=== PATIENT | male | born 2000 | race Asian ===

== ENCOUNTER 2018-11-27 21:58 | Emergency (ER) | payer SELFPAY ==
[2018-11-27 23:05] LABS: ABS Basophils 0.1 10^3/ul (0-0.2); ABS Eosinophils 0.1 10^3/ul (0-0.6); ABS Lymphocytes 1.7 10^3/ul (1.0-4.8); ABS Monocytes 0.4 10^3/ul (0-0.8); ABS Neutrophils 3.1 10^3/ul (1.5-7.7); ABS Nucleated RBC 0 10^3/ul; Eosinophil % 2.3 %; Hematocrit 50 % (42-52); Hemoglobin 16.9 g/dl (14.0-18.0); Lymphocyte % 31.1 %; Mean Corpuscular HGB Conc 34 g/dl (31-36); Mean Corpuscular Hemoglobin 31 pg (27-31); Mean Corpuscular Volume 92 fL (80-94); Mean Platelet Volume 7.2 fL (7.4-10.4); Nucleated Red Blood Cells % 0; Platelet Count 253 10^3/ul (150-450); Red Blood Count 5.47 10^6/ul (4.00-5.40); Red Cell Distribution Width 13 % (10.5-15); White Blood Count 5.3 10^3/ul (3.5-10.8)
--- NOTE | 2018-11-27 23:24 | ED ---
Syncope/Near Syncope - HPI Summary HPI Summary: 17-year-old male presents with syncopal episode today. He states that had a couple drinks and was standing when he passed out. He states he had no symptoms prior to passing out. Friends state he was out for a couple seconds. Denies any history of syncope. No nausea vomiting. No bowel pain. No chest pain shortness breath. Denies any complaints currently and no injury that he knows of. Denies any dizziness currently. States he was dizzy. - History Of Current Complaint Chief Complaint: EDSyncope Time Seen by Provider: 11/27/18 23:16 - Allergies/Home Medications Allergies/Adverse Reactions: Allergies Allergy/AdvReac Type Severity Reaction Status Date / Time No Known Allergies Allergy Verified 11/27/18 22:05 Home Medications: Home Medications NK [No Home Medications Reported] 11/27/18 [History Confirmed 11/27/18] PMH/Surg Hx/FS Hx/Imm Hx Endocrine/Hematology History: Denies: Hx Anticoagulant Therapy Cardiovascular History: Denies: Hx Hypertension Infectious Disease History: No Infectious Disease History: Reports: Traveled Outside the [place] in Last 30 Days - Family History Known Family History: Negative: Cardiac Disease - Social History Alcohol Use: Occasionally Substance Use Type: Reports: None Smoking Status (MU): Never Smoked Tobacco Review of Systems Negative: Fever Negative: Chest Pain Negative: Shortness Of Breath Positive: Syncope All Other Systems Reviewed And Are Negative: Yes Physical Exam Triage Information Reviewed: Yes Vital Signs On Initial Exam: Initial Vitals Temp Pulse Resp BP Pulse Ox 97.2 F 110 16 144/66 100 11/27/18 22:00 11/27/18 22:00 11/27/18 22:00 11/27/18 22:00 11/27/18 22:00 Vital Signs Reviewed: Yes Appearance: Positive: Well-Appearing Skin: Positive: Warm, Dry Head/Face: Positive: Normal Head/Face Inspection Eyes: Positive: Normal, EOMI, AUNDREA, Conjunctiva Clear ENT: Positive: Normal ENT inspection, Pharynx normal, TMs normal Respiratory/Lung Sounds: Positive: Clear to Auscultation, Breath Sounds Present Cardiovascular: Positive: Normal, RRR Abdomen Description: Positive: Nontender, Soft Bowel Sounds: Positive: Present Musculoskeletal: Positive: Normal Neurological: Positive: Normal Psychiatric: Positive: Normal Diagnostics - Vital Signs Vital Signs Temp Pulse Resp BP Pulse Ox 11/27/18 22:00 97.2 F 110 16 144/66 100 - Laboratory Lab Results: Lab Results 11/27/18 Range/Units 22:57 WBC 5.3 (3.5-10.8) 10^3/ul RBC 5.47 H (4.00-5.40) 10^6/ul Hgb 16.9 (14.0-18.0) g/dl Hct 50 (42-52) % MCV 92 (80-94) fL MCH 31 (27-31) pg MCHC 34 (31-36) g/dl RDW 13 (10.5-15) % Plt Count 253 (150-450) 10^3/ul MPV 7.2 L (7.4-10.4) fL Neut % (Auto) 58.5 % Lymph % (Auto) 31.1 % [place] % (Auto) 6.9 % Eos % (Auto) 2.3 % Baso % (Auto) 1.2 % Absolute Neuts (auto) 3.1 (1.5-7.7) 10^3/ul Absolute Lymphs (auto) 1.7 (1.0-4.8) 10^3/ul Absolute Monos (auto) 0.4 (0-0.8) 10^3/ul Absolute Eos (auto) 0.1 (0-0.6) 10^3/ul Absolute Basos (auto) 0.1 (0-0.2) 10^3/ul Absolute Nucleated RBC 0 10^3/ul Nucleated RBC % 0 Result Diagrams: 11/27/18 22:57 11/27/18 22:57 Lab Statement: Any lab studies that have been ordered have been reviewed, and results considered in the medical decision making process. - EKG No standard instances Cardiac Rate: NL EKG Rhythm: Sinus Rhythm Summary of EKG Findings: sinus rhythm Course/Dx Course Of Treatment: 17-year-old male presents with syncopal episode today. He states that had a couple drinks and was standing when he passed out. He states he had no symptoms prior to passing out. Friends state he was out for a couple seconds. Denies any history of syncope. No nausea vomiting. No bowel pain. No chest pain shortness breath. Denies any complaints currently and no injury that he knows of. Denies any dizziness currently. States he was dizzy. On exam has normal neuro exam. lungs CTA. abd soft nontender. wbc normal. electrolytes normal. EKG shows sinus rhythm. Offered to given IV and patient declined any fluids. discussed results. told to follow up with health center. patient understand and agrees with plan. - Diagnoses Differential Diagnosis/HQI/PQRI: Positive: Dysrhythmia, Hypovolemia, Metabolic Reaction Provider Diagnoses: Syncope Discharge - Sign-Out/Discharge Documenting (check all that apply): Patient Departure Patient Received Moderate/Deep Sedation with Procedure: No - Discharge Plan Condition: Good Disposition: HOME Patient Education Materials: Syncope (ED) Referrals: No Primary Care Phys,NOPCP [Primary Care Provider] - Additional Instructions: drink plenty of fluids Follow up with health center Return to ED if develop any new or worsening symptoms - Billing Disposition and Condition Condition: GOOD Disposition: Home
[2018-11-27 23:28] LABS: ALT 16 U/L (7-52); AST 22 U/L (13-39); Albumin 4.5 g/dL (3.2-5.2); Albumin/Globulin Ratio 1.6 (1-3); Alkaline Phosphatase 72 U/L (34-104); Anion Gap 6 mmol/L (2-11); BUN/Creatinine Ratio 12.6 (8-20); Blood Urea Nitrogen 15 mg/dL (6-24); CO2 Carbon Dioxide 29 mmol/L (22-32); Calcium 9.4 mg/dL (8.6-10.3); Chloride 105 mmol/L (101-111); EGFR African American 95.3 (>60); EGFR Non-African American 78.8 (>60); Globulin 2.8 g/dL (2-4); Glucose 110 mg/dL (70-100); Potassium 4.2 mmol/L (3.5-5.0); Sodium 140 mmol/L (135-145); Total Protein 7.3 g/dL (6.4-8.9)
[2018-11-27 23:43] LABS: Alcohol < 10 mg/dL (<10)
[2018-11-28 00:23] VITALS: BP 130/56
== END 2018-11-28 00:22 | disposition home or self-care (01) ==
LOC: ED 21:58
DX: R55 Syncope and collapse (principal)
CPT/HCPCS: 36415; 80053; 80320; 85025; 93005; 99282; G0480